=== PATIENT | female | born 1945 | race Caucasian/White ===

== ENCOUNTER 2019-03-27 10:15 | Emergency (ER) | payer BC ==
[2019-03-27] MEDS ORDERED: LIDOCAINE 5% TOPICAL PATCH TP ONE (10:50)
[2019-03-27] MEDS ORDERED: DEXAMETHASONE SOD PHOSPHATE 10MG/ML 1ML VIAL ONE (10:50)
[2019-03-27] MEDS ORDERED: KETOROLAC TROMETHAMINE 15MG/ML ONE (10:51)
[2019-03-27] MEDS ORDERED: ONDANSETRON HCL 4 MG/2 ML VIAL ONE (11:02)
[2019-03-27] MEDS ORDERED: MORPHINE SULFATE 2 MG/ML 1ML SYG ONE (11:02)
== END 2019-03-27 11:51 | disposition home or self-care (01) ==
LOC: EDH 10:15
DX: M54.41 Lumbago with sciatica, right side (principal); E78.00 Pure hypercholesterolemia, unspecified; Z90.49 Acquired absence of other specified parts of digestive tract; Z90.710 Acquired absence of both cervix and uterus; Z98.890 Other specified postprocedural states
CPT/HCPCS: 72100; 96372 ×2; 99284; J1100; J1885; J2405

== ENCOUNTER → 2019-04-25 | Outpatient (CLI) | payer BC, MEDICARE ==
[~2019-04-25] MED LIST: GADODIAMIDE 10 MMOL/20 ML VIAL IV ONE
== END | disposition home or self-care (01) ==
LOC: RAH 13:32
PROVIDERS: ATTEND Family Medicine
DX: M51.27 Other intervertebral disc displacement, lumbosacral region (principal); M54.13 Radiculopathy, cervicothoracic region
CPT/HCPCS: 72158; A9579